=== PATIENT | male | born 1955 | race Caucasian/White ===

== ENCOUNTER → 2019-02-14 | Outpatient (CLI) | payer BC | LOC: LABWHC1 10:08 | PROVIDERS: ATTEND Physician Assistant | DX: B18.2 Chronic viral hepatitis C (principal) | CPT/HCPCS: 36415; 87522; 87902 ==

== ENCOUNTER → 2019-02-27 | Outpatient (CLI) | payer BC ==
--- NOTE | 2019-02-27 07:43 | US ---
EXAMINATION TYPE: US liver DATE OF EXAM: 02/27/2019 COMPARISON: NONE CLINICAL HISTORY: B18.2 Chronic viral hepatitis C. Chronic viral hepatitis C EXAM MEASUREMENTS: Liver Length: 17.5 cm Gallbladder Wall: 0.1 cm CBD: 0.4 cm Right Kidney: 11.7 x 4.8 x 6.3 cm Pancreas: obscured by overlying midline bowel gas Liver: measures in upper limits of normal Gallbladder: wnl Evidence for sonographic Singh's sign: no CBD: wnl Right Kidney: wnl IMPRESSION: 1. Liver measures up the upper limits of normal at 17.5 cm and appears homogeneous without evidence o f discrete mass. 2. Limited assessment of the pancreas.
== END | disposition home or self-care (01) ==
LOC: RADUSWWP 06:50
PROVIDERS: ATTEND Internal Medicine Gastroenterology
DX: B18.2 Chronic viral hepatitis C (principal)
CPT/HCPCS: 76705

== ENCOUNTER → 2019-04-21 | Outpatient (CLI) | payer BC ==
[2019-04-21 18:15] LABS: Albumin 4.5 g/dL (3.80-4.90); Albumin/Globulin Ratio 2.14 (1.60-3.17); Bilirubin, Conjugated 0.3 mg/dL (0.20-0.40); Bilirubin,Unconjugated 0.6 mg/dL; Globulin 2.1 g/dL (1.6-3.3); Total Bilirubin 0.9 mg/dL (0.2-1.2); Total Protein 6.6 g/dL (6.2-8.2)
[2019-04-22 14:23] LABS: LOG HCV IU/mL <1.08 (<1.08)
== END | disposition home or self-care (01) ==
LOC: LABWHC1 13:23
PROVIDERS: ATTEND Physician Assistant
DX: B18.2 Chronic viral hepatitis C (principal)
CPT/HCPCS: 36415; 80076; 87522

== ENCOUNTER → 2019-06-05 | Outpatient (CLI) | payer BC ==
[2019-06-05 09:26] LABS: HCT 51.3 % (39.0-53.0); MCH 30.6 pg (25.0-35.0); MCHC 33.1 g/dL (31.0-37.0); MCV 92.3 fL (80.0-100.0); Mean Platelet Volume 8.2; Platelet Count 233 k/uL (150-450); RBC 5.55 m/uL (4.30-5.90); RDW 14.2 % (11.5-15.5); WBC 10.7 k/uL (3.8-10.6)
[2019-06-05 17:44] LABS: Albumin 4.6 g/dL (3.80-4.90); Albumin/Globulin Ratio 1.92 (1.60-3.17); Bilirubin, Conjugated 0.2 mg/dL (0.20-0.40); Bilirubin,Unconjugated 0.4 mg/dL; Globulin 2.4 g/dL (1.6-3.3); Total Bilirubin 0.6 mg/dL (0.2-1.2)
[2019-06-06 15:20] LABS: LOG HCV IU/mL <1.08 (<1.08)
== END | disposition home or self-care (01) ==
LOC: LABWHC1 08:52
PROVIDERS: ATTEND Physician Assistant
DX: B18.2 Chronic viral hepatitis C (principal)
CPT/HCPCS: 36415; 80076; 85027; 87522

== ENCOUNTER 2019-07-16 09:28 | Day surgery (SDC) | payer BC ==
[2019-07-14 16:07] VITALS: BMI 24.3
[~2019-07-16 09:28] MED LIST: LACTATED RINGERS 1,000 ML IV SCH; LIDOCAINE 1% 20 ML VIAL (10MG/ML) FOR IV START INTRADERMA PRN
[2019-07-16 10:30] VITALS: TEMP 97.8
[2019-07-16] MEDS ORDERED: PROPOFOL 10 MG/ML 20 ML VIAL IV ONE (11:28)
[2019-07-16] MEDS ORDERED: LIDOCAINE 1% INJ 10MG/ML (20 ML MDV) ONE (11:28)
--- NOTE | 2019-07-16 11:47 | P.PCN ---
Date of Procedure: 07/16/19 Procedure(s) Performed: BRIEF HISTORY: Patient is a 64-year-old pleasant white male scheduled for an elective colonoscopy as a part of evaluation of intermittent rectal bleeding. PROCEDURE PERFORMED: Colonoscopy. PREOPERATIVE DIAGNOSIS: Intermittent rectal bleeding IV sedation per Anesthesia. PROCEDURE: After informed consent was obtained, the patient, was brought into the endoscopy unit. IV sedation was administered by Anesthesia under continuous monitoring. Digital rectal examination was normal. Initially the Olympus CF-160 flexible video colonoscope was then inserted in the rectum, gradually advanced into the cecum without any difficulty. Careful examination was performed as the scope was gradually being withdrawn. Ileocecal valve and the appendiceal orifice were visualized and appeared normal. Prep was excellent. Mucosa of the cecum, ascending colon, transverse colon, descending colon, sigmoid colon, and rectum appeared normal. Retroflexion was performed in the rectum and small internal hemorrhoids were seen. Scattered sigmoid diverticulosis seen. The patient tolerated the procedure well. IMPRESSION: Normal-appearing colon from rectum to cecum with no evidence of colorectal neoplasia Scattered sigmoid diverticulosis. Small internal hemorrhoids. RECOMMENDATIONS: Findings of this examination were discussed with the patient as well as his family. He was advised to have a repeat screening colonoscopy in 10 years.
[2019-07-16 12:24] VITALS: BP 153/90; PULSE 80; RESP 16
== END 2019-07-16 12:54 | disposition home or self-care (01) ==
LOC: ORWHC2ENDO 09:28
PROVIDERS: ATTEND Internal Medicine Gastroenterology
DX: K64.8 Other hemorrhoids (principal); K57.30 Diverticulosis of large intestine without perforation or abscess without bleeding; K62.5 Hemorrhage of anus and rectum; I10 Essential (primary) hypertension; F17.210 Nicotine dependence, cigarettes, uncomplicated
CPT/HCPCS: 45378; J2001; J2704

== ENCOUNTER → 2019-10-20 | Outpatient (CLI) | payer BC ==
[2019-10-20 16:04] LABS: Basophils % (A) 0 %; Eosinophils # (A) 0.4 k/uL (0-0.7); Eosinophils % (A) 4 %; HCT 46.8 % (39.0-53.0); HGB 15.4 gm/dL (13.0-17.5); Lymphocytes # (A) 3.2 k/uL (1.0-4.8); Lymphocytes % (A) 30 %; MCH 29.7 pg (25.0-35.0); MCV 89.9 fL (80.0-100.0); Mean Platelet Volume 8.5; Monocytes # (A) 0.7 k/uL (0-1.0); Monocytes % (A) 7 %; Neutrophils # (A) 5.9 k/uL (1.3-7.7); Neutrophils % (A) 57 %; Platelet Count 201 k/uL (150-450); RBC 5.21 m/uL (4.30-5.90); RDW 13.6 % (11.5-15.5); WBC 10.4 k/uL (3.8-10.6)
[2019-10-21 00:56] LABS: Albumin 4.6 g/dL (3.80-4.90); Albumin/Globulin Ratio 2.19 (1.60-3.17); Bilirubin, Conjugated 0.2 mg/dL (0.20-0.40); Bilirubin,Unconjugated 0.4 mg/dL; Globulin 2.1 g/dL (1.6-3.3); Total Bilirubin 0.6 mg/dL (0.3-1.2); Total Protein 6.7 g/dL (6.2-8.2)
== END | disposition home or self-care (01) ==
LOC: LABWHC1 15:24
DX: B18.2 Chronic viral hepatitis C (principal)
CPT/HCPCS: 36415; 80076; 85025; 87522

== ENCOUNTER → 2021-11-21 | Outpatient (CLI) | payer BC ==
--- NOTE | 2021-11-21 08:23 | CTL ---
EXAMINATION TYPE: CT Low Dose Lung DATE OF EXAM ORDERED: 11/21/2021 COMPARISON: None HISTORY: . Low Dose CT Lung Screening CT DLP: 247.[address] CTDI: 7.40 mGy IV CONTRAST USED: None. SCREENING VISIT: First visit COMPARISON: None. TECHNIQUE: Low dose computed tomography scan was performed through the chest at 1 millimeter thick se ctions and reconstructed images in the coronal plane at [address] DIAGNOSTIC QUALITY: Satisfactory FINDINGS: LUNG NODULES: Not presentLeft lung: no nodules identified.Right lung: no nodules identified. LUNGS: COPD: Severity: Mild appearance mild subpleural fibrosis right lower lobe. Fibrosis: Severity:None Lymph nodes: None Other findings: None RIGHT PLEURAL SPACE: Effusion: None Calcification: None Thickening: None Pneumothorax: None LEFT PLEURAL SPACE: Effusion: None Calcification: None Thickening: None Pneumothorax: None HEART: Heart Size: Mildly enlarged Coronary calcification: Mild Pericardial effusion: None OTHER FINDINGS: Upper abdomen: No significant abnormality Bony thorax: Degenerative changes Supraclavicular region: No significant abnormality Other: Nonspecific left adrenal nodule. Multiple 1 cm lymph nodes within the mediastinum are nonspeci fic. IMPRESSION: 1. No distinct pulmonary nodularity seen. 2. Multiple 1 cm lymph nodes within the mediastinum are nonspecific. 3. COPD. FOLLOW UP CT CHEST RECOMMENDATION: Follow-up screening in one year CT LUNG RAD: LUNG RAD CATEGORY 1 negative
== END | disposition home or self-care (01) ==
LOC: RADCTMAIN 06:32
PROVIDERS: ATTEND Family Medicine
DX: Z12.2 Encounter for screening for malignant neoplasm of respiratory organs (principal); J44.9 Chronic obstructive pulmonary disease, unspecified; R59.0 Localized enlarged lymph nodes; Z87.891 Personal history of nicotine dependence
CPT/HCPCS: 71271

== ENCOUNTER → 2023-05-29 | Outpatient (CLI) | payer BC ==
--- NOTE | 2023-05-29 14:54 | MR ---
EXAMINATION TYPE: MR brain wo/w con DATE OF EXAM: 05/29/2023 2:32 PM CLINICAL INDICATION:Male, 68 years old with history of H53.9 UNSPECIFIED VISUAL DISTURBANCE; Visual d istortion, head trauma 10 yrs ago COMPARISON: None TECHNIQUE: Multi planar, multi sequence imaging was performed through the brain including: T1, T2, In version recovery, susceptibility weighted imaging and gradient echo imaging and Diffusion weighted im aging. The patient was then given intravenous contrast and multi planar, T1 fat-saturation images wer e obtained. IV Contrast: 8 cc Gadavist FINDINGS: Scattered foci of high T2 WI low ADC signal most pronounced in the right frontal lobe left parietal r egion. Some of these are orthogonal to the ventricles. The burnham-white junctions, ventricular system, basal cisterns appear unremarkable. Intracranial arteri al flow voids are maintained. Midline structures show no abnormality. Scattered foci and confluent ar eas of of high T2 signal intensity are seen within the periventricular white matter. The susceptibili ty weighted images do not reveal any evidence for micro-hemorrhage. After administration of gadoliniu m, no abnormal enhancement is seen. The bone marrow signal is within normal limits. Paranasal sinuses and mastoid air cells: Trace right mastoid air cell effusion. Left frontal lobe ret ention cyst. Mild mucosal thickening of the paranasal sinuses. Visualized orbits: Orbital contents are intact. IMPRESSION: 1. Bilateral frontal lobe areas of restricted diffusion concerning for CVA. Given multiple vascular distributions correlate for embolic phenomenon. Alternatively active demyelination could be considere d. Lateral frontal lobe areas of restricted diffusion concerning for CVA. Given multiple vascular dis tributions correlate for embolic phenomenon. Alternatively active demyelination could be considered. No abnormal postcontrast enhancement. 2. Additional Nonspecific white matter changes, which could relate to superimposed small vessel isch emic disease 3. o abnormal postcontrast enhancement. 4. Additional Nonspecific white matter changes, which could relate to superimposed small vessel isch emic disease
== END | disposition home or self-care (01) ==
LOC: RADMRIMAIN 13:24
PROVIDERS: ATTEND Family Medicine
DX: H53.9 Unspecified visual disturbance (principal); R90.82 White matter disease, unspecified; G93.89 Other specified disorders of brain
CPT/HCPCS: 70553; A9585

== ENCOUNTER → 2023-06-05 | Outpatient (CLI) | payer BC ==
--- NOTE | 2023-06-05 14:46 | US ---
EXAMINATION TYPE: US carotid duplex BILAT DATE OF EXAM: 06/05/2023 COMPARISON: NONE CLINICAL INDICATION: Male, 68 years old with history of H53.9 UNSPECIFIED VISUAL DISTURBANCE; TECHNIQUE: Carotid duplex ultrasound examination. Indirect Doppler criteria was utilized. FINDINGS: EXAM MEASUREMENTS: RIGHT: Peak Systolic Velocity (PSV) cm/sec ----- Right CCA: 65.1 ----- Right ICA: 563.9 ----- Right ECA: 110.8 ICA/CCA ratio: 8.7 RIGHT: End Diastole cm/sec ----- Right CCA: 15.4 ----- Right ICA: 301.8 ----- Right ECA: 23.6 LEFT: Peak Systolic Velocity (PSV) cm/sec ----- Left CCA: 52.7 ----- Left ICA: 632.0 ----- Left ECA: 363.6 ICA/CCA ratio: 12.0 LEFT: End Diastole cm/sec ----- Left CCA: 18.5 ----- Left ICA: 402.5 ----- Left ECA: 74.9 VERTEBRALS (direction of flow): Right Vertebral: Antegrade Left Vertebral: Antegrade Rhythm: Normal Right ICA/CCA ratio 8.7, left ICA/CCA ratio 12.0 IMPRESSION: Significantly elevated IC/CC ratios bilaterally. CTA of the carotids is recommended for further evalu ation. Criteria for Assigning % of Stenosis / Diameter reduction (Estimation based on the indirect measurements of the internal carotid artery velocities (ICA PSV). 1. Normal (no stenosis)=ICA PSV < 125 cm/s: ratio < 2.0: ICA EDV<40 cm/s. 2. Less than 50% stenosis=ICA PSV < 125 cm/s: ratio < 2.0: ICA EDV<40 cm/s. 3. 50 to 69% stenosis=ICA PSV of 125 to 230 cm/s: ration 2.0 ? 4.0: ICA EDV 40-100 cm/s. 4. Greater than 70% stenosis to near occlusion= ICA PSV > 230 cm/s: ratio > 4.0: ICA EDV > 100 cm/s. 5. Near occlusion= ICA PSV velocities may be low or undetectable: variable ratio and ICA EDV. 6. Total occlusion=unable to detect flow.
== END | disposition home or self-care (01) ==
LOC: RADUSWWP 12:32
PROVIDERS: ATTEND Family Medicine
DX: I65.23 Occlusion and stenosis of bilateral carotid arteries (principal); H53.9 Unspecified visual disturbance
CPT/HCPCS: 93880

== ENCOUNTER → 2023-06-05 | Outpatient (CLI) | payer BC ==
[2023-06-05 17:13] LABS: African American GFR (CKD) >90 (>60 ml/min/1.73 sqM); Blood Urea Nitrogen 9 mg/dL (9-20); Non-African American GFR(CKD) >90 (>60 ml/min/1.73 sqM)
--- NOTE | 2023-06-05 18:16 | CT ---
EXAMINATION TYPE: CT angio head neck DATE OF EXAM: 06/05/2023 COMPARISON: None HISTORY: carotid stenosis CT DLP: 1495.80 mGycm CONTRAST: Performed with IV Contrast, patient injected with 65ml mL of Isovue 370. Combination Contrast CTA cervical carotids and [place] CTA cervical carotids with 3-D recons truction Contrast CTA of the cervical carotids was performed 3-D reconstruction imaging obtained at a separate workstation. Right carotid system: Mild plaque is seen of the right common carotid artery. There is moderate to s evere predominantly soft plaque also noted at the carotid bulb and proximal ICA. There is near occlus ion proximal right ICA with pinpoint lumen. No significant stenosis of the right ECA. Right vertebral artery appears unremarkable. Left carotid system: Mild plaque is seen of the left common carotid artery. There is moderate soft p laque also noted at the carotid bulb and proximal ICA. There is segment critical stenosis proximal le ft ICA estimated at greater than 95%. High-grade stenosis of greater than 90% left ECA takeoff. Left vertebral artery appears unremarkable. IMPRESSION: 1. There is near occlusion proximal right ICA with pinpoint lumen. 2.There is segment critical stenosis proximal left ICA estimated at greater than 95%. High-grade sten osis of greater than 90% left ECA takeoff. 3. Nonspecific mediastinal adenopathy is partially imaged. Correlate with CT chest. 4 nonspecific thyroid lesions. CTA [place] with 3-D reconstruction Contrast CTA of the [place] was performed 3-D reconstruction imaging obtained at a separate workstation. Vertebrobasilar system as well as intracranial portions of the internal carotid arteries and their ma beatrice tributaries are patent. I do not see evidence for sizable aneurysm or vascular malformation. Lum inal narrowing involving the distal left MCA at its M1/M2 junction. Please note MRI provides greater sensitivity and specificity. Visualized brain appears grossly unremarkable. IMPRESSION: 1. . 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 No evidence for large ves nikki occlusion at this time. NASCET criteria was used in interpretation of this exam?
== END | disposition home or self-care (01) ==
LOC: RADCTMAIN 16:33
PROVIDERS: ATTEND Family Medicine
DX: I65.23 Occlusion and stenosis of bilateral carotid arteries (principal); R59.0 Localized enlarged lymph nodes
CPT/HCPCS: 82565; 84520; 70496; 70498; 36415; Q9967

== ENCOUNTER → 2023-12-12 | Outpatient (CLI) | payer BC ==
--- NOTE | 2023-12-12 08:41 | CTL ---
EXAMINATION TYPE: CT Low Dose Lung DATE OF EXAM ORDERED: 12/12/2023 HISTORY: 68-year-old male. F17.210 Nicotine dependence Z12.2 Encounter for screening. Current smoker with 30 pack-year history. Lung cancer screening CT DLP: 128.[address] CTDI: 3.2 mGy Automated exposure control for dose reduction was used. SCREENING VISIT: Annual follow-up COMPARISON: 12/05/2022 TECHNIQUE: Low dose computed tomography scan was performed through the chest with coronal and sagitta l reconstructions. CT DIAGNOSTIC QUALITY: Satisfactory FINDINGS: Hypodense 2.9 cm left thyroid lobe nodule. Consider further thyroid ultrasound evaluation if not alre sumeet assessed. This seems to have measured 2.6 cm on prior. Mediastinal adenopathy similar to slightly increased. For example, prevascular space node 1.8 cm vers us 1.6 cm, previously. Right paratracheal node 2.6 cm versus 2.2 cm, previously. Subcarinal node 1.7 cm versus 1.6 cm, previously. Borderline caliber main right and left pulmonary arteries up to 2.5 cm may reflect underlying pulmona ry hypertension. Some hazy dependent atelectasis posterior lungs. Minimal biapical pleural parenchymal scarring. Mild diffuse bronchial wall thickening. No consolidation or pleural effusion. No suspicious pulmonary nodu le identified. Visualized upper abdomen shows a nonspecific pancreatic calcification. Anterior endplate spondylosis mid to lower thoracic spine. IMPRESSION: 1. Lung RADS 1, negative. No suspicious pulmonary nodules. Recommend smoking cessation. 2. Nonspecific mediastinal adenopathy is stable to minimally larger. For example, right paratracheal measuring 2.6 cm versus 2.2 cm, previously. Consider possibilities such as granulomatous disease, con nective tissue disorders, Castleman's disease, an indolent lymphoma/leukemia. Consider oncology refer ral for any potential further workup/surveillance. 3. A left thyroid lobe nodule at 2.9 cm is slightly larger from 2.6 cm. Thyroid ultrasound evaluation to further characterize. CT LUNG RAD AND CT CHEST RECOMMENDATION: Lung-Rad 1 Negative: Continue annual screening with LDCT in 12 months. S Modifier (other clinically significant findings): S, see recommendations regarding mediastinal claudette opathy and left thyroid lobe nodule above.
== END | disposition home or self-care (01) ==
LOC: RADCTMAIN 06:23
PROVIDERS: ATTEND Family Medicine
DX: Z12.2 Encounter for screening for malignant neoplasm of respiratory organs (principal); E04.1 Nontoxic single thyroid nodule; R59.0 Localized enlarged lymph nodes; F17.210 Nicotine dependence, cigarettes, uncomplicated
CPT/HCPCS: 71271